=== PATIENT | female | born 2000 | race Caucasian/White ===

== ENCOUNTER 2022-07-26 17:47 | Emergency (ER) | payer OTHER ==
[~2022-07-26] VITALS: Ht 160 cm; Wt 63.5 kg
[2022-07-26] MEDS ORDERED: HYDROMORPHONE 1 MG/1 ML DISP.SYRIN IM ONE (19:15)
[2022-07-26] MEDS ORDERED: ONDANSETRON HCL 4 MG TABLET PO ONE (19:15)
[2022-07-26 19:37] LABS: HEMATOCRIT 43.3 % (31.2-41.9); MEAN CORPUSCULAR HEMOGLOBIN 30.4 uug (24.7-32.8); MEAN CORPUSCULAR VOLUME 91.4 fL (75.5-95.3); PLATELET COUNT (AUTO) 230 K/uL (179-408)
[2022-07-26 19:43] LABS: CARBON DIOXIDE 28 mmol/L (21-32); CHLORIDE 105 mmol/L (98-107); CREATININE 0.9 mg/dL (0.6-1.3); GLUCOSE 86 mg/dL (74-106); POTASSIUM 3.8 mmol/L (3.5-5.1); UREA NITROGEN, BLOOD 9 mg/dL (7-18)
[2022-07-26 19:48] LABS: ALANINE AMINOTRANSFERASE 22 U/L (14-59); ALKALINE PHOSPHATASE 46 U/L (50-136); ASPARTATE AMINOTRANSFERASE 9 U/L (15-37); BILIRUBIN,DIRECT < 0.1 mg/dL (0.0-0.2); BILIRUBIN,TOTAL 0.3 mg/dL (0.2-1.0); TOTAL PROTEIN, SERUM 7.1 g/dL (6.4-8.2)
[2022-07-26] MEDS ORDERED: ONDANSETRON HCL 4 MG TABLET ONE (19:51)
[2022-07-26] MEDS ORDERED: HYDROMORPHONE 2 MG/1 ML DISP.SYRIN ONE (19:51)
[2022-07-26 19:59] LABS: THYROID STIMULATING HORMONE 2.093 mIU/mL (0.358-3.740)
--- NOTE | 2022-07-26 20:42 | NUR ---
Pt resting in bed at this time, boyfriend at bedside. No distress noted. Able to make needs known. Able to ambulate with some assistance. All extremities WNL. Tolerated all medications given
[2022-07-26 20:44] LABS: *BILIRUBIN,URIN NEGATIVE (NEGATIVE); *BLOOD, URINE NEGATIVE (NEGATIVE); *CLARITY,URINE CLEAR (CLEAR); *COLOR,URINE YELLOW (YELLOW); *KETONES,URINE TRACE (NEGATIVE); *UROBILINOGEN,URINE 0.2 E.U./dl (NORMAL); LEUKOCYTE ESTERASE ,URINE NEGATIVE (NEGATIVE); NITRITE, URINE NEGATIVE (NEGATIVE); UGLUCOSE NEGATIVE (NEGATIVE)
[2022-07-26 20:55] LABS: *URINE HCG, QUAL NEGATIVE (NEGATIVE)
[2022-07-26] MEDS ORDERED: CYANOCOBALAMIN 1000 MCG/ML VIAL IM ONE (21:00)
[2022-07-26] MEDS ORDERED: CYANOCOBALAMIN 1000 MCG/ML VIAL ONE (21:04)
[2022-07-26] MEDS ORDERED: OXYC-128 PO (21:16)
--- NOTE | 2022-07-26 21:23 | NUR ---
Patient discharged to home in stable condition. Written and verbal after care instructions given. Patient verbalizes understanding of instructions. Stressed follow up or return to ER for worsening s/s.
[2022-07-26 21:25] VITALS: BP 115/62
== END 2022-07-26 21:50 | disposition home or self-care (01) ==
LOC: ER 17:47
DX: M54.2 Cervicalgia (principal); E03.9 Hypothyroidism, unspecified; M54.9 Dorsalgia, unspecified; K59.00 Constipation, unspecified; E53.8 Deficiency of other specified B group vitamins
CPT/HCPCS: 99284; 80076; 80048; 81003; 82607; 84703; 84439; 84443; 85025; 36415; 72100; 96372 ×2; 83921; 84481; J3420; J1170; A4663; Q0162